=== PATIENT | female | born 1990 | race Caucasian/White ===

== ENCOUNTER 2017-01-23 18:31 | Emergency (ER) | payer OTHER ==
[~2017-01-23] VITALS: Ht 154.9 cm; Wt 90.9 kg
[~2017-01-23 18:31] MED LIST: CYCL5TAB PO; SERT50TA PO
[2017-01-23 18:42] VITALS: TEMP 36.9; Ht 154.9 cm; Wt 90.9 kg
--- NOTE | 2017-01-23 19:34 | DIAGNOSTIC IMAGING REPORT ---
CHEST 2 VIEWS ROUTINE CLINICAL HISTORY: right rib/clavicle pain, hit by baseball inferior to clavicle trauma COMPARISON STUDY: No previous studies for comparison. FINDINGS: The bones soft tissues and hemidiaphragms are normal. The cardiomediastinal silhouette is normal. The lungs are clear. The pulmonary vasculature is normal. IMPRESSION: Negative chest. The above report was generated using voice recognition software. It may contain grammatical, syntax or spelling errors. Electronically signed by: Latrell Steinberg M.D. 01/23/2017 7:33 PM Dictated Date/Time: 01/23/2017 7:32 PM
--- NOTE | 2017-01-23 20:01 | EMERGENCY ROOM VISIT NOTE ---
ED Visit Note First contact with patient: 18:55 CHIEF COMPLAINT: Right chest wall and shoulder pain HISTORY OF PRESENT ILLNESS: This 6-year-old female patient presents to the emergency department, ambulatory, complaining of pain in the right chest wall and shoulders after getting hit with a baseball 3 nights ago. The patient states she was playing baseball with her nephew 3 nights ago, when he threw a ball which hit her just inferiorly to the clavicle. The patient states she has been experiencing moderate discomfort in this area, and radiating towards the right shoulder. The patient states last night, she lost feeling in her right shoulder and arm, and dropped an object at work. The patient has been intermittently applying ice and heat to the shoulder, with minimal to no relief. The patient has not taken any vacations [id number]. There is no increased pain with deep breathing or coughing. Attempting to sit up from a lying position is painful. Denies shortness of breath or coughing up blood. The patient rates the pain as sharp and 7/10. No previous fractures to the ribs or shoulder, but the patient does report shoulder dislocation as a young child.. The patient denies any other injury. The patient denies any abdominal pain, nausea, or vomiting. REVIEW OF SYSTEMS: A 6 system review of systems was completed with positives and pertinent negatives listed in the HPI. ALLERGIES: Amoxicillin MEDICATIONS: None PMH: None SOCIAL HISTORY: The patient lives locally with her family. She denies drug, alcohol use. The patient does admit to smoking 3 cigarettes per day. PHYSICAL EXAM: VITALS: Vitals are noted on the nurse's note and reviewed by myself. Vital signs stable. GENERAL: This is a 26-year-old female, in no acute distress, nondiaphoretic, well-developed well-nourished. LUNGS: Clear to auscultation and breath sounds equal, no wheezes, rales, or rhonchi. HEART: Heart sounds are regular without murmurs, ectopy, gallop, or rub. CHEST: The right chest wall is tender to palpation over the 3-5th ribs but there is no fracture crepitus and no ecchymosis. There is no tachypnea or dyspnea. MUSCULOSKELETAL: The right shoulder is tender anteriorly on palpation. No swelling, erythema, or ecchymosis. There is no sulcus sign. Strength of the RUE is 5/5. Distal pulses 2+. Full active and passive range of motion, however, very mildly limited due to pain. There is mild tenderness of the distal clavicle. ABDOMEN: Positive bowel sounds x 4. Normal tympanic percussion. Soft, nontender, without masses or organomegaly. No guarding or rebound tenderness. NEURO: Patient was alert and oriented to person place and time. RADIOLOGY: CXR: FINDINGS: The bones soft tissues and hemidiaphragms are normal. The cardiomediastinal silhouette is normal. The lungs are clear. The pulmonary vasculature is normal. IMPRESSION: Negative chest. EMERGENCY DEPARTMENT COURSE: I examined the patient. X-rays of the chest were negative for acute fracture. I discussed discharge instructions the patient. I did offer the patient an arm sling, however she declines this time. The patient was discharged home in good condition. DIFFERENTIAL DIAGNOSIS: Rib fracture, clavicle fracture, proximal humerus fracture, chest wall contusion, rotator cuff strain or tear, and others. DIAGNOSIS: Chest wall contusion TREATMENT and DISCHARGE INSTRUCTIONS: ORTHOPEDIC INSTRUCTIONS: Ibuprofen(Motrin, Advil) may be used for fever or pain. Use 600mg every six hours as needed. Take with food. Avoid using more than 2400mg in a 24 hour period. Do not use 2400mg per day for more than three consecutive days without physician direction. Prolonged inappropriate use can lead to stomach upset or ulcers. (AND/OR) Acetaminophen(Tylenol) may be used for fever or pain. Use 1000mg every six to eight hours as needed. Avoid using more than 3000mg in a 24 hour period. Ice compresses for 20 minutes at a time four times daily for 2-3 days. Rest and elevate your injury. Return to the ER immediately for any numbness, tingling, severe pain, extreme swelling in the extremity or as needed. Call [facility], [phone], in 1 week if no improvement, to arrange follow up for your injury. Follow-up with your primary care physician in 2 to 3 days for a recheck of your current condition. Current/Historical Medications Scheduled Sertraline (Zoloft), 50 MG PO QAM Allergies Coded Allergies: Amoxicillin (Unverified Allergy, Unknown, RASH, 01/23/17) Vital Signs Date Time Temp Pulse Resp B/P (MAP) Pulse Ox O2 Delivery O2 Flow Rate FiO2 7/30/17 20:18 77 18 130/88 98 01/23/17 18:42 36.9 85 18 124/93 99 Room Air Departure Information Impression Primary Impression: Contusion of right chest wall Dispostion Home / Self-Care Condition GOOD Referrals No Doctor, Assigned (PCP) Patient Instructions ED Contusion Chest Wall, My [facility] Additional Instructions ORTHOPEDIC INSTRUCTIONS: Ibuprofen(Motrin, Advil) may be used for fever or pain. Use 600mg every six hours as needed. Take with food. Avoid using more than 2400mg in a 24 hour period. Do not use 2400mg per day for more than three consecutive days without physician direction. Prolonged inappropriate use can lead to stomach upset or ulcers. (AND/OR) Acetaminophen(Tylenol) may be used for fever or pain. Use 1000mg every six to eight hours as needed. Avoid using more than 3000mg in a 24 hour period. Ice compresses for 20 minutes at a time four times daily for 2-3 days. Rest and elevate your injury. Return to the ER immediately for any numbness, tingling, severe pain, extreme swelling in the extremity or as needed. Call [facility], [phone], in 1 week if no improvement, to arrange follow up for your injury. Follow-up with your primary care physician in 2 to 3 days for a recheck of your current condition. Work Instructions Return To Work: 1 day Additional Work Instructions: Please excuse the patient from work on 01/22/17 and 01/23/17. She may return to work on 01/24/17. Problem Qualifiers Primary Impression: Contusion of right chest wall Encounter type: initial encounter Qualified Codes: S20.211A - Contusion of right front wall of thorax, initial encounter
[2017-01-23 20:18] VITALS: BP 130/88; PULSE 77; O2SAT 98
== END 2017-01-23 20:19 | disposition home or self-care (01) ==
LOC: C.EDB 18:34 → C.EDD 20:19
DX: S20.211A Contusion of right front wall of thorax, initial encounter (principal); W21.03XA Struck by baseball, initial encounter